=== PATIENT | male | born 1970 | race African-American/Black ===

== ENCOUNTER 2019-08-14 10:00 | Inpatient (IN) ==
[~2019-08-14 10:00] MED LIST: ceFAZolin 1,000 MG in SYRINGE 1 EACH IV ONE
[2019-08-20 16:23] LABS: Basophils % 0.4 % (0.0-0.8); Eosinophils # 0.2 10*3/uL (0.0-0.87); Eosinophils % 3.7 % (0.00-10.9); Hematocrit 40.8 VOL% (42.0-52.0); Hemoglobin 13.4 GM/DL (14.0-18.0); Immature Granulocytes % 0.4 %; Immature Granulocytes Absolute 0.02 #; Lymphocytes # 1.7 10*3/uL (1.4-4.0); Lymphocytes % 35.5 % (21.2-54.2); Mean Corpuscular HGB Conc 32.8 GM/DL (32-36); Mean Corpuscular Volume 98.3 FL (87-102); Monocytes % 7.6 % (1.7-12.7); Neutrophils % 52.4 % (38.7-73.9); Platelet Count 211 T/CUMM (130-400); Red Blood Count 4.15 MC/CUMM (3.8-5.5); Red Cell Distribution Width 12.6 % (9.3-17.3); White Blood Count 4.9 T/CUMM (4-12)
[2019-08-20 16:35] LABS: Calcium 9.1 MG/DL (8.5-10.1); Osmolality,Calculated 276.4 MOS/KG (273-304)
[2019-08-21] MEDS ORDERED: ceFAZolin 1,000 MG in SYRINGE 1 EACH IV ONE (06:00)
[2019-08-21] MEDS ORDERED: ACETAMINOPHEN 500 MG TABLET PO ONE (06:00)
[2019-08-21] MEDS ORDERED: GABAPENTIN 400 MG CAPSULE PO ONE (06:00)
[2019-08-21] MEDS ORDERED: FAMOTIDINE 20 MG TABLET PO ONE (06:00)
[2019-08-21] MEDS ORDERED: DIAZEPAM 5 MG TABLET PO ONE (06:00)
[2019-08-21] MEDS ORDERED: GABAPENTIN 400 MG CAPSULE ONE (07:15)
[2019-08-21] MEDS ORDERED: DIAZEPAM 5 MG TABLET ONE (07:15)
[2019-08-21] MEDS ORDERED: ACETAMINOPHEN 500 MG TABLET ONE (07:15)
[2019-08-21] MEDS ORDERED: FAMOTIDINE 20 MG TABLET ONE (07:15)
[2019-08-21] MEDS ORDERED: ceFAZolin 1,000 MG VIAL ONE (07:16)
[2019-08-21] MEDS: LACTATED RINGERS 1,000 ML IV SCH ×3 (07:41→16:32)
[2019-08-21] MEDS ORDERED: TISSUE ADHESIVE 1 EACH APPLICATOR TOP ONE ×2 (09:16→11:33)
[2019-08-21] MEDS ORDERED: HEPARIN 5,000 UNIT/1 ML VIAL ONE (09:16)
[2019-08-21] MEDS ORDERED: VANCOMYCIN 500 MG VIAL ONE (09:16)
[2019-08-21] MEDS ORDERED: THROMBIN TOPICAL (RECOMBINANT) 5,000 UNIT VIAL TOP ONE (09:16)
[2019-08-21] MEDS ORDERED: LIDOCAINE 1% 20 ML VIAL ONE (09:16)
[2019-08-21] MEDS ORDERED: HYDROmorphone 2 MG/1 ML VIAL IV PRN (11:33)
[2019-08-21] MEDS ORDERED: PROPOFOL 200 MG/20 ML VIAL IV ONE (11:55)
[2019-08-21] MEDS ORDERED: DEXAMETHASONE 4 MG/1 ML VIAL ONE (11:55)
[2019-08-21] MEDS ORDERED: HEPARIN 10,000 UNIT/10 ML VIAL ONE (11:55)
[2019-08-21] MEDS ORDERED: fentaNYL 100 MCG/2 ML VIAL ONE (11:55)
[2019-08-21] MEDS ORDERED: ONDANSETRON 4 MG/2 ML VIAL ONE ×2 (11:55→12:15)
[2019-08-21] MEDS ORDERED: SEVOFLURANE 1 UNIT/15 MINUTE INH ONE (11:55)
[2019-08-21] MEDS ORDERED: KETOROLAC 30 MG/1 ML VIAL ONE (11:55)
[2019-08-21] MEDS ORDERED: METOPROLOL TARTRATE 5 MG/5 ML VIAL IV ONE (11:56)
[2019-08-21] MEDS ORDERED: ROCURONIUM 100 MG/10 ML VIAL IV ONE (11:56)
[2019-08-21] MEDS ORDERED: GLYCOPYRROLATE 0.4 MG/2 ML VIAL ONE (11:56)
[2019-08-21] MEDS ORDERED: PROTAMINE SULFATE 50 MG/5 ML VIAL IV ONE (11:56)
[2019-08-21] MEDS ORDERED: NEOSTIGMINE 10 MG/10 ML VIAL ONE (11:56)
[2019-08-21] MEDS ORDERED: hydrALAZINE 20 MG/1 ML VIAL ONE (12:10)
[2019-08-21] MEDS ORDERED: ONDANSETRON 4 MG/2 ML VIAL IV PRN (12:14)
[2019-08-21] MEDS ORDERED: HYDROmorphone 2 MG/1 ML VIAL ONE (12:15)
[2019-08-21] MEDS: HYDROmorphone 2 MG/1 ML VIAL IV PRN ×2 (12:20→12:25)
[2019-08-21] MEDS ORDERED: hydrALAZINE 20 MG/1 ML VIAL IV ONE (12:21)
[2019-08-21] MEDS ORDERED: LACTATED RINGERS 1,000 ML IV ONE (13:35)
[2019-08-21] MEDS: ROSUVASTATIN 20 MG TABLET PO SCH (18:18)
[2019-08-21] MEDS: DOCUSATE SODIUM 100 MG CAPSULE PO SCH (21:46)
[2019-08-21] MEDS: CILOSTAZOL 100 MG TABLET PO SCH (21:46)
[2019-08-22] MEDS: LACTATED RINGERS 1,000 ML IV SCH ×2 (00:13→08:35)
[2019-08-22] MEDS: ONDANSETRON 4 MG/2 ML VIAL IV PRN ×2 (04:48→15:50)
[2019-08-22 05:32] LABS: Calcium 8.7 MG/DL (8.5-10.1)
[2019-08-22] MEDS: ASPIRIN CHEW 81 MG TABLET PO SCH (08:33)
[2019-08-22] MEDS: CILOSTAZOL 100 MG TABLET PO SCH ×2 (08:33→20:05)
[2019-08-22] MEDS: DOCUSATE SODIUM 100 MG CAPSULE PO SCH ×2 (08:33→20:05)
[2019-08-22] MEDS: METOPROLOL SUCCINATE XL 25 MG TABLET PO SCH (08:33)
[2019-08-22] MEDS: CLOPIDOGREL 75 MG TABLET PO SCH (08:33)
[2019-08-22] MEDS: amLODIPine 10 MG TABLET PO SCH (08:33)
[2019-08-22] MEDS: ROSUVASTATIN 20 MG TABLET PO SCH (20:05)
[2019-08-23] MEDS: ONDANSETRON 4 MG/2 ML VIAL IV PRN (00:57)
[2019-08-23 01:30] LABS: Albumin 3.5 G/DL (3.4-5.0); Osmolality,Calculated 277.4 MOS/KG (273-304); Total Protein 6.9 G/DL (6.4-8.3)
[2019-08-23] MEDS ORDERED: ALUM/MAG/SIMETH/LIDO VISC 1:1 30 ML BOTTLE PO ONE (02:00)
[2019-08-23] MEDS ORDERED: METOCLOPRAMIDE 10 MG/2 ML VIAL IV ONE ×2 (08:54→08:59)
[2019-08-23] MEDS: amLODIPine 10 MG TABLET PO SCH (13:15)
[2019-08-23] MEDS: CLOPIDOGREL 75 MG TABLET PO SCH (13:15)
[2019-08-23] MEDS: METOPROLOL SUCCINATE XL 25 MG TABLET PO SCH (13:15)
[2019-08-23] MEDS: DOCUSATE SODIUM 100 MG CAPSULE PO SCH ×2 (13:15→23:20)
[2019-08-23] MEDS: PANTOPRAZOLE 40 MG TABLET PO SCH (13:15)
[2019-08-23] MEDS: ASPIRIN CHEW 81 MG TABLET PO SCH (13:15)
[2019-08-23] MEDS: CILOSTAZOL 100 MG TABLET PO SCH ×2 (13:15→23:20)
[2019-08-23] MEDS: METOCLOPRAMIDE 10 MG TABLET PO SCH ×3 (13:19→23:20)
[2019-08-23] MEDS: ROSUVASTATIN 20 MG TABLET PO SCH (18:35)
[2019-08-23] MEDS ORDERED: PANTOPRAZOLE 40 MG VIAL IV ONE (19:35)
[2019-08-23] MEDS ORDERED: CALCIUM CARBONATE CHEW 500 MG TABLET PO PRN (19:36)
[2019-08-24 07:59] VITALS: BP 129/90
[2019-08-24] MEDS: METOCLOPRAMIDE 10 MG TABLET PO SCH (09:13)
[2019-08-24] MEDS: PANTOPRAZOLE 40 MG TABLET PO SCH (09:13)
[2019-08-24] MEDS: CLOPIDOGREL 75 MG TABLET PO SCH (09:13)
[2019-08-24] MEDS: amLODIPine 10 MG TABLET PO SCH (09:13)
[2019-08-24] MEDS: METOPROLOL SUCCINATE XL 25 MG TABLET PO SCH (09:13)
[2019-08-24] MEDS: DOCUSATE SODIUM 100 MG CAPSULE PO SCH (09:13)
[2019-08-24] MEDS: ASPIRIN CHEW 81 MG TABLET PO SCH (09:13)
[2019-08-24] MEDS: CILOSTAZOL 100 MG TABLET PO SCH (09:13)
== END 2019-08-24 09:30 | disposition home or self-care (01) | DRG 254 ==
LOC: N.SDSINP 08-21 06:01 → N.3E 08-21 13:13
PROVIDERS: ADMIT Surgery; ATTEND Surgery

== ENCOUNTER 2019-11-27 06:35 | Inpatient (IN) ==
[2019-11-26 12:42] LABS: Basophils % 0.6 % (0.0-0.8); Eosinophils # 0.1 10*3/uL (0.0-0.87); Eosinophils % 1.9 % (0.00-10.9); Hematocrit 43.4 VOL% (42.0-52.0); Hemoglobin 14.2 GM/DL (14.0-18.0); Immature Granulocytes % 0.2 %; Immature Granulocytes Absolute 0.01 #; Lymphocytes # 1.7 10*3/uL (1.4-4.0); Mean Corpuscular HGB Conc 32.7 GM/DL (32-36); Mean Corpuscular Volume 97.7 FL (87-102); Mean Platelet Volume 10.1 FL (9.6-12.0); Monocytes % 11.4 % (1.7-12.7); Neutrophils % 52.9 % (38.7-73.9); Platelet Count 187 T/CUMM (130-400); Red Blood Count 4.44 MC/CUMM (3.8-5.5); Red Cell Distribution Width 13.6 % (9.3-17.3); White Blood Count 5.3 T/CUMM (4-12)
[2019-11-26 13:22] LABS: Albumin 3.5 G/DL (3.4-5.0); Calcium 8.9 MG/DL (8.5-10.1); Osmolality,Calculated 275.5 MOS/KG (273-304); Total Protein 6.7 G/DL (6.4-8.3)
[~2019-11-27 06:35] MED LIST changes: +LACTATED RINGERS 1,000 ML IV SCH; +ceFAZolin 1,000 MG VIAL ONE
[2019-11-27] MEDS ORDERED: FAMOTIDINE 20 MG TABLET PO ONE (07:53)
[2019-11-27] MEDS ORDERED: DIAZEPAM 5 MG TABLET PO ONE (07:53)
[2019-11-27] MEDS ORDERED: ACETAMINOPHEN 500 MG TABLET ONE (07:59)
[2019-11-27] MEDS ORDERED: METOPROLOL TARTRATE 25 MG TABLET ONE (08:00)
[2019-11-27] MEDS ORDERED: DIAZEPAM 5 MG TABLET ONE (08:00)
[2019-11-27] MEDS ORDERED: FAMOTIDINE 20 MG TABLET ONE (08:00)
[2019-11-27] MEDS ORDERED: METOPROLOL TARTRATE 25 MG TABLET PO STA (08:02)
[2019-11-27] MEDS: ACETAMINOPHEN 500 MG TABLET PO ONE (08:05)
[2019-11-27] MEDS ORDERED: HEPARIN 5,000 UNIT/1 ML VIAL ONE (10:43)
[2019-11-27] MEDS ORDERED: BUPIVACAINE 0.5% 50 ML VIAL ONE (10:43)
[2019-11-27] MEDS ORDERED: VANCOMYCIN 500 MG VIAL ONE (10:44)
[2019-11-27] MEDS ORDERED: SUGAMMADEX 200 MG/2 ML VIAL IV ONE (12:09)
[2019-11-27] MEDS ORDERED: HYDROmorphone 2 MG/1 ML VIAL IV PRN ×2 (12:12→13:00)
[2019-11-27] MEDS ORDERED: oxyCODONE/ACETAMINOPHEN 5-325 MG TABLET PO PRN (12:16)
[2019-11-27] MEDS ORDERED: MIDAZOLAM 2 MG/2 ML VIAL ONE (12:33)
[2019-11-27] MEDS ORDERED: LIDOCAINE 2% 5 ML VIAL ONE (12:33)
[2019-11-27] MEDS ORDERED: SEVOFLURANE 1 UNIT/15 MINUTE INH ONE (12:33)
[2019-11-27] MEDS ORDERED: DEXAMETHASONE 4 MG/1 ML VIAL ONE (12:33)
[2019-11-27] MEDS ORDERED: ONDANSETRON 4 MG/2 ML VIAL ONE (12:33)
[2019-11-27] MEDS ORDERED: fentaNYL 100 MCG/2 ML VIAL ONE (12:33)
[2019-11-27] MEDS ORDERED: propofoL 200 MG/20 ML VIAL IV ONE (12:33)
[2019-11-27] MEDS ORDERED: ROCURONIUM 100 MG/10 ML VIAL IV ONE (12:34)
[2019-11-27] MEDS ORDERED: HEPARIN 10,000 UNIT/10 ML VIAL ONE (12:35)
[2019-11-27] MEDS ORDERED: PROTAMINE SULFATE 50 MG/5 ML VIAL IV ONE (12:35)
[2019-11-27] MEDS ORDERED: PHENYLEPHRINE DRIP 20 MG/250 ML PREMIX IV ONE (12:35)
[2019-11-27] MEDS ORDERED: KETOROLAC 30 MG/1 ML VIAL ONE (12:35)
[2019-11-27] MEDS ORDERED: METOPROLOL TARTRATE 5 MG/5 ML VIAL IV ONE (12:35)
[2019-11-27] MEDS ORDERED: ONDANSETRON 4 MG/2 ML VIAL IV PRN (13:00)
[2019-11-27] MEDS: LACTATED RINGERS 1,000 ML IV SCH (13:45)
[2019-11-27] MEDS: METOCLOPRAMIDE 10 MG TABLET PO SCH ×2 (18:45→20:37)
[2019-11-27] MEDS ORDERED: METOPROLOL SUCCINATE XL 25 MG TABLET PO SCH (21:00)
[2019-11-27] MEDS ORDERED: ROSUVASTATIN 20 MG TABLET PO SCH (21:00)
[2019-11-27] MEDS ORDERED: amLODIPine 10 MG TABLET PO SCH (21:00)
[2019-11-27] MEDS: oxyCODONE/ACETAMINOPHEN 5-325 MG TABLET PO PRN (22:40)
[2019-11-28 04:58] LABS: Hematocrit 39.7 VOL% (42.0-52.0); Hemoglobin 13.5 GM/DL (14.0-18.0)
[2019-11-28 05:23] LABS: Osmolality,Calculated 274.7 MOS/KG (273-304)
[2019-11-28] MEDS: LACTATED RINGERS 1,000 ML IV SCH ×2 (05:25→06:04)
[2019-11-28] MEDS: oxyCODONE/ACETAMINOPHEN 5-325 MG TABLET PO PRN (06:34)
[2019-11-28 08:04] VITALS: BP 151/109
[2019-11-28] MEDS ORDERED: ASPIRIN CHEW 81 MG TABLET PO SCH ×2 (09:00)
[2019-11-28] MEDS ORDERED: CLOPIDOGREL 75 MG TABLET PO SCH ×2 (09:00)
[2019-11-28] MEDS ORDERED: PANTOPRAZOLE 40 MG TABLET PO SCH (09:00)
[2019-11-28] MEDS: ACETAMINOPHEN 500 MG TABLET PO ONE (09:17)
[2019-11-28] MEDS: METOCLOPRAMIDE 10 MG TABLET PO SCH (09:21)
== END 2019-11-28 10:55 | disposition home or self-care (01) | DRG 272 ==
LOC: N.SDSINP 06:35 → N.3E 13:49
PROVIDERS: ADMIT Surgery; ATTEND Surgery